=== PATIENT | female | born 1945 | race Caucasian/White ===

== ENCOUNTER → 2017-11-13 | Outpatient (CLI) | payer OTHER ==
[~2017-11-13] MED LIST: ALBU8.5H8 INH; CETI10TA24 PO; CITA20TA6 PO; DEXL60CA2 PO; DEXOLANT PO; FLUT1AER INFIL; LEVO25TA4 PO; LEVO500T47 PO; LISI-167; MOME13HF2; MONT10TA6 PO; PRED10TA PO; [UNRECOGNIZED DRUG - OTHER]
== END | disposition home or self-care (01) ==
LOC: CFH 10:09
PROVIDERS: ATTEND Internal Medicine Gastroenterology
DX: K76.89 Other specified diseases of liver (principal); N26.1 Atrophy of kidney (terminal); K40.90 Unilateral inguinal hernia, without obstruction or gangrene, not specified as recurrent; M48.54XA Collapsed vertebra, not elsewhere classified, thoracic region, initial encounter for fracture; R91.8 Other nonspecific abnormal finding of lung field
CPT/HCPCS: 71260; 74177; 82565

== ENCOUNTER → 2017-12-05 | Outpatient (CLI) | payer OTHER ==
[~2017-12-05] MED LIST changes: -ALBU8.5H8 INH; -CETI10TA24 PO; -CITA20TA6 PO; -DEXL60CA2 PO; -FLUT1AER INFIL; -LEVO25TA4 PO
== END | disposition home or self-care (01) ==
LOC: CFH 12:50
PROVIDERS: ATTEND Internal Medicine
DX: J84.10 Pulmonary fibrosis, unspecified (principal); M48.54XA Collapsed vertebra, not elsewhere classified, thoracic region, initial encounter for fracture; N26.1 Atrophy of kidney (terminal); K44.9 Diaphragmatic hernia without obstruction or gangrene; R91.8 Other nonspecific abnormal finding of lung field
CPT/HCPCS: 71250

== ENCOUNTER 2017-12-11 07:54 | Day surgery (SDC) | payer OTHER ==
[~2017-12-11] VITALS: Ht 160 cm; Wt 71.7 kg
[~2017-12-11 07:54] MED LIST changes: +ALBU8.5H8 INH; +CETI10TA24 PO; +CITA20TA6 PO; +DEXL60CA2 PO; +FLUT1AER INFIL; +LEVO25TA4 PO
[2017-12-11 08:34] VITALS: BP 126/85
[2017-12-11] MEDS ORDERED: LIDOCAINE-MPF 1%, 2ML ONE (08:36)
[2017-12-11] MEDS ORDERED: LACTATED RINGERS 1,000 ML IV SCH (09:02)
[2017-12-11] MEDS ORDERED: LIDOCAINE GEL 2%, 5ML ONE (09:12)
[2017-12-11] MEDS ORDERED: LIDOCAINE-MPF 2% ,5ML ONE (09:13)
[2017-12-11] MEDS ORDERED: FENTANYL PF 100 MCG/2ML ONE (09:13)
[2017-12-11] MEDS ORDERED: MIDAZOLAM 1 MG/ML, 2ML ONE (09:14)
[2017-12-11] MEDS ORDERED: LIDOCAINE-MPF 1%, 2ML INFIL ONE (09:30)
[2017-12-11] MEDS ORDERED: EPHEDRINE 50 MG/ML, 1ML ONE (09:40)
[2017-12-11] MEDS ORDERED: ONDANSETRON 2MG/ML, 2ML IV PRN (10:30)
[2017-12-11] MEDS ORDERED: FENTANYL PF 100 MCG/2ML IV PRN (10:30)
[2017-12-11] MEDS ORDERED: ALBUTEROL/IPRATROPIUM 2.5MG/0.5MG, 3 ML NPPB PRN (10:30)
[2017-12-11] MEDS ORDERED: PROMETHAZINE 25 MG SUPP PR PRN (10:30)
[2017-12-11] MEDS ORDERED: ALBUTEROL SULFATE 2.5 MG/3 ML NPPB PRN (10:30)
[2017-12-11] MEDS ORDERED: OXYcodone 5 MG/5 ML ORAL.SOL UDC PO PRN (10:30)
[2017-12-11] MEDS ORDERED: MEPERIDINE/PF 25MG/0.5ML IVPush PRN (10:30)
[2017-12-11] MEDS ORDERED: MIDAZOLAM 1 MG/ML, 2ML IV PRN (10:30)
[2017-12-11] MEDS ORDERED: HYDROmorphone 1 MG/ML, 1ML IV PRN (10:30)
[2017-12-11] MEDS ORDERED: hydrALAzine 20 MG/ML, 1ML IV PRN (10:30)
[2017-12-11] MEDS ORDERED: ROCURONIUM 10MG/ML,5ML ONE (10:37)
[2017-12-11] MEDS ORDERED: GLYCOPYRROLATE 0.2MG/1ML, 5ML ONE (10:37)
[2017-12-11] MEDS ORDERED: ONDANSETRON 2MG/ML, 2ML ONE (10:37)
[2017-12-11] MEDS ORDERED: DEXAMETHASONE 4 MG/ML, 1ML ONE (10:37)
[2017-12-11] MEDS ORDERED: SUCCINYLCHOLINE 20 MG/ML, 10ML ONE (10:37)
[2017-12-11] MEDS ORDERED: CEFAZOLIN 1,000 MG ONE (10:37)
[2017-12-11] MEDS ORDERED: NEOSTIGMINE 1 MG/ML, 10ML ONE (10:37)
[2017-12-11] MEDS ORDERED: PROPOFOL 10 MG/ML, 20ML ONE (10:37)
[2017-12-11] MEDS ORDERED: ALBUTEROL/IPRATROPIUM 2.5MG/0.5MG, 3 ML ONE (11:27)
== END 2017-12-11 13:00 ==
LOC: OUT 07:54
PROVIDERS: ATTEND Internal Medicine
DX: J98.4 Other disorders of lung (principal); J45.909 Unspecified asthma, uncomplicated; E03.9 Hypothyroidism, unspecified; Z86.73 Personal history of transient ischemic attack (TIA), and cerebral infarction without residual deficits; Z88.1 Allergy status to other antibiotic agents; Z88.0 Allergy status to penicillin; Z87.891 Personal history of nicotine dependence
CPT/HCPCS: 31624; 31628; 31632; 71045; 76001; 88112; 88172; 88173; 88305; 93005; 94640; J0330; J1100; J2250; J2405; J2704; J2710; J3010; J3490; J7120; J7620; 31629; J0690

== ENCOUNTER → 2017-12-25 | Outpatient (CLI) | payer OTHER | END | disposition home or self-care (01) | LOC: PETCFH 12:57 | PROVIDERS: ATTEND Internal Medicine | DX: R91.8 Other nonspecific abnormal finding of lung field (principal) | CPT/HCPCS: 78815; A9552 ==

== ENCOUNTER 2018-01-17 05:43 | Day surgery (SDC) | payer OTHER ==
[~2018-01-17] VITALS: Ht 162.6 cm; Wt 74.0 kg
[2018-01-17 07:06] VITALS: BP 142/82
[2018-01-17] MEDS ORDERED: SODIUM CHLORIDE 0.9% 1,000 ML IV SCH (07:10)
[2018-01-17] MEDS ORDERED: LIDOCAINE-MPF 2%, 2ML ONE (07:59)
[2018-01-17] MEDS ORDERED: FLUMAZENIL 0.1 MG/1 ML, 5ML ONE (08:03)
[2018-01-17] MEDS ORDERED: FENTANYL PF 100 MCG/2ML ONE (08:03)
[2018-01-17] MEDS ORDERED: MIDAZOLAM 1 MG/ML, 5ML ONE (08:03)
[2018-01-17] MEDS ORDERED: NALOXONE 1 MG/ML, 2ML ONE (08:04)
== END 2018-01-17 12:15 | disposition home or self-care (01) ==
LOC: RAD 05:43
PROVIDERS: ATTEND Internal Medicine
DX: J93.9 Pneumothorax, unspecified (principal); K44.9 Diaphragmatic hernia without obstruction or gangrene; J45.909 Unspecified asthma, uncomplicated; Z88.0 Allergy status to penicillin; Z88.8 Allergy status to other drugs, medicaments and biological substances
CPT/HCPCS: 32405; 71045; 77012; 88305; 99156; J2250; J3010; J3490; 99157; J2310

== ENCOUNTER 2021-02-14 13:03 | Emergency (ER) | payer OTHER ==
[~2021-02-14] VITALS: Ht 162.6 cm; Wt 80.0 kg
[~2021-02-14 13:03] MED LIST changes: -CETI10TA24 PO; +CETI10TA76 PO
--- NOTE | 2021-02-14 14:46 | NUR ---
PT IN ROOM RESTING ON PARAMJIT BOURGEOIS, PT ASSESSED BY MD BEDSIDE. DOPPLER USED TO ASSESS PEDAL PULSES, BOTH PRESENT
[2021-02-14 14:47] VITALS: BP 130/55
[2021-02-14 14:48] LABS: BASOPHILS % (AUTO) 1 % (0-1); EOSINOPHILS % (AUTO) 4 % (1-7); LYMPHOCYTES % (AUTO) 13 % (22-44); MEAN CORPUSCULAR HEMOGLOBIN 32.3 pg (27.0-34.8); MEAN CORPUSCULAR HGB CONC 33.9 g/dL (32.4-35.8); MEAN PLATELET VOLUME 7.5 fL (7.4-10.4); MONOCYTES % (AUTO) 11 % (2-9); NEUTROPHILS % (AUTO) 72 % (42-75); PLATELET COUNT 250 x10^3/uL (130-400); RED BLOOD COUNT 4.55 x10^6/uL (3.82-5.3); RED CELL DISTRIBUTION WIDTH 13.3 % (9.6-15.2)
[2021-02-14 15:17] LABS: ALBUMIN 3.4 g/dL (3.4-5.0); ANION GAP 3 mmol/L (5-15); CALCIUM 9.4 mg/dL (8.5-10.1); CHLORIDE 107 mmol/L (98-107); CREATININE 0.76 mg/dL (0.55-1.02)
--- NOTE | 2021-02-14 16:08 | NUR ---
ALL PT SCANS COMPLETE, PT RESTING ON JMAESRNEY
== END 2021-02-14 16:55 | disposition home or self-care (01) ==
LOC: ED 16:51
DX: M25.571 Pain in right ankle and joints of right foot (principal); M25.572 Pain in left ankle and joints of left foot; J45.909 Unspecified asthma, uncomplicated; M19.90 Unspecified osteoarthritis, unspecified site; Z90.49 Acquired absence of other specified parts of digestive tract; Z90.710 Acquired absence of both cervix and uterus; Z87.891 Personal history of nicotine dependence; Z88.0 Allergy status to penicillin; Z88.1 Allergy status to other antibiotic agents
CPT/HCPCS: 36415; 80048; 82040; 83880; 84550; 85025; 93970; 99284